=== PATIENT | male | born 1985 | race African-American/Black ===

== ENCOUNTER 2016-10-11 20:19 | Emergency (ER) | payer OTHER ==
[2016-10-11 20:23] VITALS: BP 163/98
--- NOTE | 2016-10-11 20:31 | PROVIDER DOCUMENTATION ---
HPI-Rash/Wound/ReCheck - General Chief Complaint: Abscess Stated Complaint: FACIAL ABSCESS Time Seen by Provider: 10/11/16 20:30 Source: patient Allergies/Adverse Reactions: Allergies Allergy/AdvReac Type Severity Reaction Status Date / Time No Known Allergies Allergy Verified 10/11/16 20:25 - History of Present Illness-Dermatology Nature of Presenting Problem: 31 y/o AAM c/o abscess on the right lower jaw that has been getting increasingly large over merrill past month. Started as an infected hair follicle and developed into a larger mass. Denies fevers, chills, mouth or throat swelling, difficulty breathing or difficulty swallowing. No pre-arrival treatment. hx of multiple abscesses. Review of Systems - Adult - REVIEW OF SYSTEMS - ADULT Constitutional: reports: no symptoms reported. denies: chills, fever, fatique Eyes: reports: no symptoms reported. denies: blurred vision, double vision, eye pain Ears, Nose, Mouth & Throat: reports: no symptoms reported. denies: ear pain, nose pain, throat pain Cardiovascular: reports: no symptoms reported. denies: chest pain, palpitations Respiratory: reports: no symptoms reported. denies: cough, shortness of breath Gastrointestinal: reports: no symptoms reported. denies: abdominal pain, nausea , vomiting Genitourinary: reports: no symptoms reported Musculoskeletal: reports: no symptoms reported. denies: muscle aches Integumentary: reports: see HPI, skin sores/ulcer Neurological: reports: no symptoms reported. denies: headache/migraines Psychiatric: reports: no symptoms reported Endocrine: reports: no symptoms reported Hematologic/Lymphatic: reports: no symptoms reported Allergic/Immunologic: reports: no symptoms reported All Other Systems: Reviewed and Negative Past History - Adult - PAST MEDICAL HISTORY-ADULT Review of Records: reports: Old Records Reviewed, Nursing Assessment Review, Medications Reviewed, Social history reviewed & non-contributory. Major Childhood Illnesses: reports: denies history Cardiovascular: reports: denies history Respiratory: reports: denies history Gastrointestinal: reports: denies history Genitourinary: reports: kidney stones Musculoskeletal: reports: denies history Neurological: reports: denies history Endocrine/Immune: reports: denies history Other Conditions: reports: denies history - IMMUNIZATION STATUS Childhood Immunizations: See Nurse Assessment Flu Vaccine: See Nurse Assessment - FAMILY HISTORY Family History: reviewed, not pertinent Physical Exam-General - PHYSICAL EXAM-ADULT Initial Vital Signs Reviewed: Yes - CONSTITUTIONAL General Appearance: appears well, alert, no apparent distress - EYES Eyes: PERRL/EOMI, pink conjunctivae - HEAD, EARS, NOSE, MOUTH & THROAT HENMT: normocephalic/atraumatic, moist mucous membranes, normal ENT inspection, other (abscess on the right lower jaw) - NECK Neck: non-tender, full range of motion, supple, normal inspection. negative: lymphadenopathy - RESPIRATORY Respiratory: chest non-tender, lungs clear, normal breath sounds, no pleuratic chest pain, no respiratory distress, no accessory muscle use. negative: respiratory distress, decreased breath sounds, accessory muscle use, crackles, rales, rhonchi, wheezing - CARDIOVASCULAR Cardiovascular: normal peripheral pulses, regular rate, rhythm, no edema - MUSCULOSKELETAL Extremity: normal gait - SKIN Integumentary: normal color, normal turgor, warm/dry, other (absces on the right lower jaw) - NEUROLOGIC Neurologic: grossly normal, no motor/sensory deficits - PSYCHIATRIC Psych/Mental Status: normal mood/affect, normal thought content, normal thought process, oriented x 3 Progress - PLAN OF CARE/RESULTS Progress/Plan/Lab Results: Vital Signs Temp Pulse Resp BP Pulse Ox 10/11/16 20:21 98.3 F 96 H 17 163/98 100 No Known Allergies Allergy (Verified 10/11/16 20:25) Mupirocin Ointment [Bactroban Ointment] 1 applicatn TOP TID #1 tube 10/11/16 Sulfamethoxazole/Trimethoprim [Bactrim Ds Tablet] 1 each PO BID #10 tablet 10/11 Discussed with patient conservative management vs. I&D. Patient agreed with the conservative management since the abscess was on his face, and will return for I &D if fails antibiotic therapy Departure - Departure Time of Disposition Order: 20:31 DIAGNOSIS: Abscess Disposition: HOME 01 Certified Medical Emergency: Emergent Condition: Stable Additional Instructions: ED Follow Up Instructions: You have been treated by a care provider in the Emergency Department. These instructions are being provided to you so you can have an understanding of how to care for yourself upon discharge. Upon discharge from the Emergency Department, you are responsible for making arrangements for follow-up care by a physician of your choice. Take all prescribed medications as directed. Return to the Emergency Department immediately for any new or worsening symptoms. You may call the Physician Referral phone number at [phone] to obtain a list of Physicians who are taking new patients. Prescriptions: Sulfamethoxazole/Trimethoprim [Bactrim Ds Tablet] 1 each PO BID #10 tablet Mupirocin Ointment [Bactroban Ointment] 1 applicatn TOP TID #1 tube Referrals: None,PCP [Primary Care Provider] - Attestation - Physician/ Mid-level Attestation Patient care was provided by Mid-level provider (AREA FORESTER/PA):: Yes Mid-level provider:: Ruth Enamorado Mid-level documentation review:: The Mid-level provider documentation, treatment plan and medical decision making was reviewed by the physician who agrees with all treatment and medical decision making by the MLP.
== END 2016-10-11 20:59 | disposition home or self-care (01) ==
LOC: ED 20:19
DX: L02.01 Cutaneous abscess of face (principal); L98.9 Disorder of the skin and subcutaneous tissue, unspecified; Z87.442 Personal history of urinary calculi
CPT/HCPCS: 99282